=== PATIENT | female | born 1940 | race Caucasian/White ===

== ENCOUNTER 2020-05-02 07:13 | Emergency (ER) | payer MEDICARE, BC ==
[~2020-05-02] VITALS: Ht 154.9 cm; Wt 46.4 kg
[2020-05-02 07:33] LABS: BASOPHILS # (AUTO) 0.1 X10'3 (0-0.2); BASOPHILS % (AUTO) 0.9 % (0-1); EOSINOPHILS # (AUTO) 0.8 X10'3 (0-0.9); HEMATOCRIT 39.5 % (35.0-45.0); LYMPHOCYTES # (AUTO) 3.3 X10'3 (1.1-4.8); LYMPHOCYTES % (AUTO) 36.8 % (21-51); MEAN CORPUSCULAR HEMOGLOBIN 33.1 PG (27.0-31.0); MEAN CORPUSCULAR VOLUME 100.4 FL (78-98); MEAN PLATELET VOLUME 7.4 FL (7.4-10.4); MONOCYTES # (AUTO) 0.7 X10'3 (0-0.9); MONOCYTES % (AUTO) 7.8 % (2-12); NEUTROPHILS # (AUTO) 4.1 X10'3 (1.8-7.7); NEUTROPHILS % (AUTO) 45.5 % (42-75); PLATELET COUNT 308 X10'3 (140-440); RED BLOOD COUNT 3.94 X10'6 (4.20-5.60); RED CELL DISTRIBUTION WIDTH 16.2 % (11.5-14.5); WHITE BLOOD COUNT 9.1 X10'3 (4.5-11.0)
[2020-05-02 07:53] LABS: ALANINE AMINOTRANSFERASE 26 U/L (12-78); ALBUMIN 4.4 G/DL (3.4-5.0); ALBUMIN/GLOBULIN RATIO 1.6 (1.1-1.5); ALKALINE PHOSPHATASE 63 IU/L (46-116); ANION GAP 10 (8-16); ASPARTATE AMINO TRANSFERASE 32 U/L (10-37); BILIRUBIN,TOTAL 0.6 MG/DL (0.1-1.0); BLOOD UREA NITROGEN 25 MG/DL (7-18); BUN/CREATININE RATIO 22.9 (6.6-38.0); CALCIUM 9.5 MG/DL (8.5-10.1); CHLORIDE 98 MMOL/L (99-107); CREATININE 1.09 MG/DL (0.40-0.90); GLUCOSE 89 MG/DL (70-104); POTASSIUM 5.1 MMOL/L (3.5-5.1); SODIUM 131 MMOL/L (135-145); TOTAL CARBON DIOXIDE 23.5 MMOL/L (24-32); TOTAL PROTEIN 7.2 G/DL (6.4-8.2); eGFR 48 ML/MIN
[2020-05-02 07:57] LABS: MAGNESIUM 1.3 MG/DL (1.5-2.4); PHOSPHORUS 3.5 MG/DL (2.3-4.5)
[2020-05-02 09:38] VITALS: BP 159/84
== END 2020-05-02 09:41 | disposition home or self-care (01) ==
LOC: ER 07:14
DX: R79.9 Abnormal finding of blood chemistry, unspecified (principal); E87.1 Hypo-osmolality and hyponatremia; R53.1 Weakness; R20.0 Anesthesia of skin
CPT/HCPCS: 36415; 71046; 80053; 83735; 84100; 84443; 85025; 93005; 99285

== ENCOUNTER 2020-09-11 09:32 | Day surgery (SDC) | payer MEDICARE, BC ==
[2020-09-10 12:46] LABS: BASOPHILS # (AUTO) 0.1 X10'3 (0-0.2); BASOPHILS % (AUTO) 0.6 % (0-1); EOSINOPHILS % (AUTO) 0.5 % (0-6); HEMATOCRIT 36.1 % (35.0-45.0); HEMOGLOBIN 12.1 g/dl (12.0-16.0); LYMPHOCYTES # (AUTO) 1.1 X10'3 (1.1-4.8); LYMPHOCYTES % (AUTO) 12.2 % (21-51); MEAN CORPUSCULAR HGB CONC 33.5 g/dL (33.0-36.5); MEAN CORPUSCULAR VOLUME 101.5 FL (78-98); MEAN PLATELET VOLUME 7.3 FL (7.4-10.4); MONOCYTES # (AUTO) 0.4 X10'3 (0-0.9); MONOCYTES % (AUTO) 4.4 % (2-12); NEUTROPHILS # (AUTO) 7.7 X10'3 (1.8-7.7); NEUTROPHILS % (AUTO) 82.3 % (42-75); PLATELET COUNT 330 X10'3 (140-440); RED BLOOD COUNT 3.56 X10'6 (4.20-5.60); RED CELL DISTRIBUTION WIDTH 15.9 % (11.5-14.5); WHITE BLOOD COUNT 9.4 X10'3 (4.5-11.0)
[2020-09-10 12:59] LABS: PARTIAL THROMBOPLASTIN TIME 42 SECONDS (22-32)
[2020-09-10 13:01] LABS: ALANINE AMINOTRANSFERASE 23 U/L (12-78); ALBUMIN 4.2 G/DL (3.4-5.0); ALBUMIN/GLOBULIN RATIO 1.6 (1.1-1.5); ALKALINE PHOSPHATASE 65 IU/L (46-116); ANION GAP 15 (8-16); ASPARTATE AMINO TRANSFERASE 26 U/L (10-37); BILIRUBIN,TOTAL 0.5 MG/DL (0.1-1.0); BLOOD UREA NITROGEN 22 MG/DL (7-18); BUN/CREATININE RATIO 16.3 (6.6-38.0); CHLORIDE 91 MMOL/L (99-107); CREATININE 1.35 MG/DL (0.40-0.90); GLUCOSE 162 MG/DL (70-104); POTASSIUM 4.9 MMOL/L (3.5-5.1); SODIUM 127 MMOL/L (135-145); TOTAL CARBON DIOXIDE 21.2 MMOL/L (24-32); TOTAL PROTEIN 6.9 G/DL (6.4-8.2); eGFR 38 ML/MIN
[2020-09-11] VITALS (10 sets, daily range): BP systolic 95–151; BP diastolic 50–79
[~2020-09-11] VITALS: Ht 157.5 cm; Wt 45.2 kg
[2020-09-11] MEDS ORDERED: LIDOcaine 1% (10mg/ml)w/preservative injection 20ml MDV ONE (10:31)
[2020-09-11] MEDS ORDERED: iohexol 350 MG/ML 50ML vial IV ONE ×2 (10:31→11:27)
[2020-09-11] MEDS ORDERED: iohexol 350MG/ML 100ml bottle IV ONE (10:31)
[2020-09-11] MEDS ORDERED: midazolam 2 mg/2 ml injection ONE (10:31)
[2020-09-11] MEDS ORDERED: fentaNYL/PF 50MCG/1 ML 2ML syringe ONE (10:31)
[2020-09-11] MEDS ORDERED: MONT10TA26 PO (10:35)
[2020-09-11] MEDS ORDERED: OMEP20CA15 PO (10:35)
[2020-09-11] MEDS ORDERED: ERGO500041 PO (10:35)
[2020-09-11] MEDS ORDERED: AMLO5TAB PO (10:35)
[2020-09-11] MEDS ORDERED: ALLO300T8 PEG (10:35)
[2020-09-11] MEDS ORDERED: ASPI-611 PO (10:35)
[2020-09-11] MEDS ORDERED: LISI-600 PO (10:35)
[2020-09-11] MEDS ORDERED: CLOP75TA15 PO (10:35)
[2020-09-11] MEDS ORDERED: ALEN70TA60 PO (10:35)
[2020-09-11] MEDS ORDERED: FLEC50TA28 PO (10:35)
[2020-09-11] MEDS ORDERED: ATOR10TA87 PO (10:35)
[2020-09-11] MEDS ORDERED: diphenhydrAMINE 25mg capsule PO ONE (10:49)
[2020-09-11] MEDS ORDERED: methylPREDNISolone sod succ 125mg/2ml vial ONE (10:49)
[2020-09-11] MEDS ORDERED: LORazepam 0.5 MG tablet PO PRN (10:50)
[2020-09-11] MEDS ORDERED: diphenhydrAMINE 25mg capsule PO PRN (10:50)
[2020-09-11] MEDS ORDERED: normal saline 1,000 ML IV SCH (10:50)
[2020-09-11] MEDS ORDERED: nitroGLYCERIN 0.4mg SUBLingual tab SL PRN (10:55)
[2020-09-11] MEDS ORDERED: methylPREDNISolone sod succ 125mg/2ml vial IV ONE (10:55)
[2020-09-11] MEDS ORDERED: diphenhydrAMINE 50 mg/ml inj ONE (11:00)
[2020-09-11] MEDS ORDERED: HYDROcodone/acetaminophen 5mg/325mg tablet PO PRN (12:35)
[2020-09-11] MEDS ORDERED: normal saline 1000ml 1,000 ML IV SCH (12:35)
[2020-09-11] MEDS ORDERED: ondansetron/PF 4mg/2ml inj IV PRN (12:35)
[2020-09-11] MEDS ORDERED: OXAZEpam 15mg capsule PO PRN (12:35)
[2020-09-11] MEDS ORDERED: HYDROcodone/acetaminophen 10/325mg tab PO PRN (12:35)
[2020-09-11] MEDS ORDERED: proCHLORperazine 10 MG/2 ml inj IV PRN (12:35)
--- NOTE | 2020-09-11 12:35 | NUR ---
Problems reprioritized. Patient report given, questions answered & plan of care reviewed with ELIDA Au.
== END 2020-09-11 18:00 | disposition home or self-care (01) ==
LOC: SSTAY O 09:32
PROVIDERS: ATTEND Internal Medicine Cardiovascular Disease
DX: R94.39 Abnormal result of other cardiovascular function study (principal); I25.10 Atherosclerotic heart disease of native coronary artery without angina pectoris; I48.0 Paroxysmal atrial fibrillation; J44.9 Chronic obstructive pulmonary disease, unspecified; I10 Essential (primary) hypertension; E78.5 Hyperlipidemia, unspecified; M10.9 Gout, unspecified; Z87.891 Personal history of nicotine dependence; Z88.8 Allergy status to other drugs, medicaments and biological substances; Z98.890 Other specified postprocedural states; Z86.73 Personal history of transient ischemic attack (TIA), and cerebral infarction without residual deficits
CPT/HCPCS: 36415; 71046; 76937; 80053; 85025; 85610; 85730; 93005; 93458; 93567; 99152; 99153; C1760; C1769; J1200; J1644; J2001; J2250; J2930; J3010; J7030; Q0163; Q9967; A4620; A6258